=== PATIENT | female | born 1985 | race Caucasian/White ===

== ENCOUNTER → 2017-02-12 | Outpatient (CLI) | payer BC ==
[2014-01-25 19:30] VITALS: BP 134/95
[~2017-02-12] MED LIST: HYDR12.53 PO; LEXAPRO10 MG PO; LISI10TA2 PO; METO-269 PO
--- NOTE | 2017-02-12 15:40 | RAD ---
EXAM: Right breast ultrasound. HISTORY: Palpable increasing right breast mass. COMPARISON: None. FINDINGS: Sonographic evaluation of the right breast was performed at the 9:30 site of concern, 8 cm from the nipple. Comparison is made with the prior study of 02/06/2016. There is a hypoechoic solid oval mass at the site of concern, measuring 2.4 x 1.1 x 2.1 cm. There are thin internal septa and internal vascularity. This has increased in size since the prior study when it measured 1.5 x 0.6 x 1.5 cm. IMPRESSION: 1. BI-RADS Category 4: Suspicious abnormality-biopsy is suggested. 2. Given instability, biopsy of the right breast mass at the 9:30 position is recommended to confirm benignity, unless surgical resection is not already planned based on clinical assessment.
== END | disposition home or self-care (01) ==
LOC: KCIC US 15:09
PROVIDERS: ATTEND Nurse Practitioner Family
DX: N63.10 Unspecified lump in the right breast, unspecified quadrant (principal)
CPT/HCPCS: 76641

== ENCOUNTER → 2018-02-18 | Outpatient (CLI) | payer BC ==
[2014-01-25 19:30] VITALS: BP 134/95
--- NOTE | 2018-02-19 13:49 | KCIC ---
PA and lateral chest x-ray without comparison for cough for one week, history of bronchitis. FINDINGS: The lungs are clear. The cardiomediastinum is grossly unremarkable. No soft tissue or osseous anomalies are seen. IMPRESSION: 1. No acute cardiopulmonary abnormality. Electronically signed by: Ventura Calhoun MD (02/19/2018 1:46 PM) [id number]
== END | disposition home or self-care (01) ==
LOC: KCIC 15:12
PROVIDERS: ATTEND Nurse Practitioner Family
DX: R05 Cough (principal)
CPT/HCPCS: 71046

== ENCOUNTER → 2020-03-12 | Outpatient (CLI) | payer OTHER, BC ==
[2014-01-25 19:30] VITALS: BP 134/95
[~2020-03-12] MED LIST changes: -HYDR12.53 PO; +HYDR12.575 PO
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
== END ==
LOC: KCIC 15:34
PROVIDERS: ATTEND Nurse Practitioner Family
DX: M54.6 Pain in thoracic spine (principal)
CPT/HCPCS: 72072

== ENCOUNTER → 2020-03-20 | Outpatient (CLI) | payer OTHER, BC ==
[2014-01-25 19:30] VITALS: BP 134/95
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
== END ==
LOC: KCIC MRI 08:39
PROVIDERS: ATTEND Nurse Practitioner Family
DX: M54.6 Pain in thoracic spine (principal)
CPT/HCPCS: 72146

== ENCOUNTER → 2020-05-03 | Outpatient (CLI) | payer OTHER, BC ==
[2014-01-25 19:30] VITALS: BP 134/95
[~2020-05-03] MED LIST changes: +ACET-1871 PO; +ASCO100T4 PO; +CHOL500050 PO; +IBUP-1007 PO; +MECO10005 PO; +MELA10TA PO; +MULT-245 PO
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
== END | disposition home or self-care (01) ==
LOC: PNCL 09:05
PROVIDERS: ATTEND Anesthesiology
DX: M54.5 Low back pain (principal); M79.605 Pain in left leg; I10 Essential (primary) hypertension; M19.90 Unspecified osteoarthritis, unspecified site; K21.9 Gastro-esophageal reflux disease without esophagitis; F32.9 Major depressive disorder, single episode, unspecified; F17.210 Nicotine dependence, cigarettes, uncomplicated; Z79.899 Other long term (current) drug therapy; Z98.51 Tubal ligation status; Z98.890 Other specified postprocedural states; Z82.49 Family history of ischemic heart disease and other diseases of the circulatory system
CPT/HCPCS: 99214; G0463

== ENCOUNTER → 2020-05-16 | Outpatient (CLI) | payer OTHER, BC ==
[2014-01-25 19:30] VITALS: BP 134/95
--- NOTE | 2020-05-16 16:25 | KCIC ---
MR LUMBAR SPINE WO -[id number] Date: 05/16/2020 2:25 PM Indication: LUMBAR RADICULOPATHY. Back pain into tailbone and down left leg. Sx in recent months. Comparison: None. Technique: Multi-planar multi-weighted magnetic resonance imaging of the lumbar spine was performed w ithout intravenous contrast using the standard lumbar spine protocol. FINDINGS: The lumbar spine is normally aligned. No acute fracture. Degenerative disc desiccation and disc heigh t loss at L5-S1. Bone marrow signal intensity is normal. The conus terminates at a normal level. No abnormal signal is seen within the visualized distal spina l cord. No clumping of intrathecal nerve roots. Sacral Tarlov cysts. No soft tissue abnormality in the visualized abdomen or pelvis. T12-L1: No disc bulge. No facet arthropathy. No significant spinal stenosis or neural foraminal narro wing. L1-L2: No disc bulge. No facet arthropathy. No significant spinal stenosis or neural foraminal narrow ing. L2-L3: No disc bulge. No facet arthropathy. No significant spinal stenosis or neural foraminal narrow ing. L3-L4: No disc bulge. No facet arthropathy. No significant spinal stenosis or neural foraminal narrow ing. L4-L5: No disc bulge. No facet arthropathy. No significant spinal stenosis or neural foraminal narrow ing. L5-S1: Disc bulge with annular tear which mildly narrows both lateral recesses and abuts the descendi ng S1 nerve roots. No spinal canal stenosis. Mild left neural foraminal narrowing. IMPRESSION: Focal degenerative changes at L5-S1 as above. Electronically signed by: Vince Myers MD (05/16/2020 4:23 PM) [id number]
== END | disposition home or self-care (01) ==
LOC: KCIC MRI 14:19
PROVIDERS: ATTEND Anesthesiology
DX: M51.16 Intervertebral disc disorders with radiculopathy, lumbar region (principal); M48.07 Spinal stenosis, lumbosacral region
CPT/HCPCS: 72148

== ENCOUNTER → 2020-05-23 | Outpatient (CLI) | payer OTHER, BC ==
[2014-01-25 19:30] VITALS: BP 134/95
[~2020-05-23] MED LIST changes: +VALA10005 PO; +methylPREDNISolone ACETATE 40 MG/ML VIAL. ONE; +methylPREDNISolone ACETATE 80 MG/ML VIAL. ONE
--- NOTE | 2020-05-23 12:19 | PDOC ---
Progress Note - Pain Clinic Date of Service: DOS: DATE: 05/23/20 TIME: 12:16 Diagnosis: Dx: Lumbar radiculopathy with lumbar degenerative disc disease History or Present Illness: HPI: 34-year-old female returns for follow-up status post initial evaluation and preauthorization as well as MRI scan lumbar spine. Patient had MRI scan showing disc bulges with annular tear at L5-S1 which mildly narrows both lateral recesses and abuts the descending S1 nerve roots. Patient has obtained preauthorization for lumbar epidural steroid injection, and would like to proceed. Patient reports that she has significant pain low back left lower extremity posterior gluteus posterior thigh posterior calf to the ankle and foot on the left side patient reports is a 6 on scale 10 is worse over the past week 6 on average for its least and is a 6 today patient ports aching tight shooting burning tingling and stabbing radiating left leg patient reports no new motor or sensory deficits still better with sitting or laying down does not generally wake from sleep at night. Patient reports no new motor or sensory deficits no bowel or bladder incontinence. Physical Exam: VS: Blood pressure is 134/89 pulse 76 respirations 18 temperature 98.6 F height is 5 feet 1 inches weight is 126 pounds PE: PHYSICAL EXAMINATION: GENERAL: The patient is awake, alert, oriented, appropriate, very pleasant demeanor HEENT: Shows normocephalic, atraumatic. Extraocular movements are intact and symmetrical. NECK: Shows anterior throat supple without palpable lymphadenopathy noted. Swallow reflex symmetrical. CHEST: Shows normal on inspection. Breath sounds are clear bilaterally. HEART: Shows S1, S2 clear. No murmurs auscultated. ABDOMEN: Soft, nontender, nondistended. No palpable organomegaly is noted. BACK: Shows spine grossly in the midline. Normal-appearing cervical lordotic curvature. There is slightly increased thoracic kyphosis, some minor flattening of the lumbar lordotic curvature. Lumbar paraspinous muscles show symmetrical on inspection, on palpation shows some moderate tenderness diffusely throughout the upper, middle and lower distribution of the paraspinous muscles without specific trigger points, without radiation of pain. The patient has good rotational motion of the lumbar spine, both laterally as well as extension and flexion without significant difficulty. EXTREMITIES: Lower extremities show deep tendon reflexes 2+ in the patellar and tendo calcaneus tendons. Motor exam is 5 on a scale of 5 with right dorsiflexion, extension, quadriceps and hamstring flexion and 4/5 on the left. Peripheral pulses are 1+ posterior tibial. No peripheral edema is noted bilaterally. Lower extremities are warm and dry to touch, equal in color and appearance. SKIN: Shows warm and dry, good turgor. No edema. No sores, rashes or bruising throughout. Procedure: Procedure: Options were discussed with the patient. Patient will chart reviews her current medication regimen updated current review of systems updated today as well. We will proceed with a lumbar epidural steroid injection today with fluoroscopic guidance. Risks were discussed including but not limited to: Bleeding, infection, possibility of epidural hematoma and subsequent neurological compromise, dural puncture, headaches, spinal cord and/or nerve damage, side effects of steroid medication, and poor results regarding pain control. Patient understands and wished to proceed. Patient will return to clinic in approximate 2 weeks for follow-up, was counseled as to return appointment activity level and side effects to be aware of. Medication Injected: Med Injected: Procedure is lumbar epidural steroid injection under local anesthetic using sterile prep and drape at the L5-S1 level using C-arm fluoroscopic guidance in both AP and lateral views medications injected is 120 mg Depo-Medrol + 10 mL preservative-free normal saline and 2 mL contrast- condition at discharge is stable patient tolerated procedure well had no complications. Condition at Discharge: Condition at Discharge: Condition at discharge stable, patient tolerated procedure well and had no complications. CHIQUITA BUTLER MD May 23, 2020 12:19
--- NOTE | 2020-05-23 12:20 | PDOC4 ---
PROCEDURE Procedure Patient was consented for lumbar epidural steroid injection. Risks were dis cussed including but not limited to: Bleeding, infection, possibility of epidural hematoma and subsequent neurological compromise, dural puncture, headaches, spinal cord and/or nerve damage, side effects of steroid medication, and poor results regarding pain control. Patient understands and wished to proceed. Procedure is lumbar epidural steroid injection under local anesthetic using sterile prep and drape at the L5-S1 level using C-arm fluoroscopic guidance in both AP and lateral views medications injected is 120 mg Depo-Medrol + 10 mL preservative-free normal saline and 2 mL contrast- condition at discharge is stable patient tolerated procedure well had no complications. CHIQUITA BUTLER MD May 23, 2020 12:20
== END | disposition home or self-care (01) ==
LOC: PNCL 11:02
PROVIDERS: ATTEND Anesthesiology
DX: M51.16 Intervertebral disc disorders with radiculopathy, lumbar region (principal); F17.210 Nicotine dependence, cigarettes, uncomplicated; Z79.899 Other long term (current) drug therapy
CPT/HCPCS: 62323; J1030; J1040

== ENCOUNTER → 2020-06-06 | Outpatient (CLI) | payer OTHER, BC ==
[2014-01-25 19:30] VITALS: BP 134/95
[~2020-06-06] MED LIST changes: +IOHEXOL 180 MG/ML 10 ML VIAL. ONE; +LISI10TA16 PO; -LISI10TA2 PO
--- NOTE | 2020-06-06 14:22 | PDOC4 ---
PROCEDURE Procedure Patient was consented for lumbar epidural steroid injection. Risks were dis cussed including but not limited to: Bleeding, infection, possibility of epidural hematoma and subsequent neurological compromise, dural puncture, headaches, spinal cord and/or nerve damage, side effects of steroid medication, and poor results regarding pain control. Patient understands and wished to proceed. Procedure is lumbar epidural steroid injection under local anesthetic using sterile prep and drape at the L5-S1 level using C-arm fluoroscopic guidance in both AP and lateral views medications injected is 120 mg Depo-Medrol + 10 mL preservative-free normal saline and 2 mL contrast- condition at discharge is stable patient tolerated procedure well had no complications. CHIQUITA BUTLER MD Jun 06, 2020 14:22
--- NOTE | 2020-06-06 14:22 | PDOC ---
Progress Note - Pain Clinic Date of Service: DOS: DATE: 06/06/20 TIME: 14:18 Diagnosis: Dx: Lumbar radiculopathy with lumbar degenerative disc disease History or Present Illness: HPI: 34-year-old female returns for follow-up status post lumbar epidural steroid action x1. Patient reports about 60% improvement in low back and left lower extremity pain. Patient reports it took a few days for the pain to subside after the injection but then it was quite a bit better. Patient reports still pain in the low back and left lower extremity posterior gluteus posterior thigh to the knee and on the lateral thigh as well only on the left side. Patient reports that initially she was doing much better with walking standing doing household activities travel with greater ease and comfort as well. Patient rates her pain is 8 on scale 10 is worse over the past week 7 on average 7 its least is a 7 today. Patient scribes pain is tight shooting across the back burning and stabbing with radiating pain in the left lower extremity as described can be severe with extended walking or standing, better with sitting or laying down generally is not awaken her from sleep at night but can every 5-6 hours over the past few days as the pain is been returning. Patient reports no new motor or sensory deficits no new bowel or bladder incontinence or other complaints. Physical Exam: VS: Blood pressure is 123/88 pulse 78 respirations 18 temperature is 98.1 F weight is 129 pounds PE: PHYSICAL EXAMINATION: GENERAL: The patient is awake, alert, oriented, appropriate, very pleasant demeanor HEENT: Shows normocephalic, atraumatic. Extraocular movements are intact and symmetrical. Oral cavity: Mucous membranes moist and pink. NECK: Shows anterior throat supple without palpable lymphadenopathy noted. Swallow reflex symmetrical. CHEST: Shows normal on inspection. Breath sounds are clear bilaterally. HEART: Shows S1, S2 clear. No murmurs auscultated. ABDOMEN: Soft, nontender, nondistended. No palpable organomegaly is noted. BACK: Shows spine grossly in the midline. Normal-appearing cervical lordotic curvature. There is slightly increased thoracic kyphosis, some flattening of the lumbar lordotic curvature. Lumbar paraspinous muscles show symmetrical on i nspection, on palpation shows some moderate tenderness diffusely throughout the upper, middle and lower distribution of the paraspinous muscles without specific trigger points, without radiation of pain. The patient has good rotational motion of the lumbar spine, both laterally as well as extension and flexion without significant difficulty. EXTREMITIES: Lower extremities show deep tendon reflexes 2+ in the patellar and tendo calcaneus tendons. Motor exam is 5 on a scale of 5 with right dorsiflexion, extension, quadriceps and hamstring flexion and 4/5 on the left. Peripheral pulses are 1+ posterior tibial. No peripheral edema is noted bilaterally. Lower extremities are warm and dry to touch, equal in color and appearance. SKIN: Shows warm and dry, good turgor. No edema. No sores, rashes or bruising throughout. Procedure: Procedure: Options were discussed with the patient. Patient will chart reviews her current medication regimen updated current review of systems updated today as well. We will proceed with a second in a series lumbar epidural steroid traction today with fluoroscopic guidance. Risks were discussed including but not limited to: Bleeding, infection, possibility of epidural hematoma and subsequent neurol ogical compromise, dural puncture, headaches, spinal cord and/or nerve damage, side effects of steroid medication, and poor results regarding pain control. Patient understands and wished to proceed. Patient will return to clinic in approximate 2 weeks for follow-up, was counseled as return appointment activity level and side effects to be aware of. Medication Injected: Med Injected: Procedure is lumbar epidural steroid injection under local anesthetic using sterile prep and drape at the L5-S1 level using C-arm fluoroscopic guidance in both AP and lateral views medications injected is 120 mg Depo-Medrol + 10 mL preservative-free normal saline and 2 mL contrast- condition at discharge is stable patient tolerated procedure well had no complications. Condition at Discharge: Condition at Discharge: Condition at discharge stable, patient tolerated the procedure well and had no complications. CHIQUITA BUTLER MD Jun 06, 2020 14:22
== END | disposition home or self-care (01) ==
LOC: PNCL 13:28
PROVIDERS: ATTEND Anesthesiology
DX: M51.16 Intervertebral disc disorders with radiculopathy, lumbar region (principal); Z98.890 Other specified postprocedural states
CPT/HCPCS: 62323; J1030; J1040; Q9965

== ENCOUNTER → 2021-02-07 | Outpatient (CLI) | payer BC ==
[2014-01-25 19:30] VITALS: BP 134/95
[~2021-02-07] MED LIST changes: -IOHEXOL 180 MG/ML 10 ML VIAL. ONE; -methylPREDNISolone ACETATE 40 MG/ML VIAL. ONE; -methylPREDNISolone ACETATE 80 MG/ML VIAL. ONE
--- NOTE | 2021-02-07 15:14 | KCIC ---
Bilateral diagnostic digital mammograms with 3-D tomosynthesis: Reason for examination: Right breast lump laterally with pain and bilateral nipple discharge for 2 mo nths. Comparison is made to previous study dated 02/06/2016. Bilateral mammograms in CC and oblique projections were obtained with 2-D imaging and 3-D tomosynthes is imaging on a Siemens Inspiration unit and reviewed on the workstation. Interpretation was made wit h the benefit of CAD. The skin and nipples show no abnormalities. No abnormal axillary lymph nodes are seen. The breast par enchyma is extremely dense. (Breast density: Category D.) There appears to be a small nodule left javon ast at approximately the 3:30 B position. There are no other dominant masses, suspicious calcificatio ns or architectural distortion. Impression: Dense breast parenchyma with possible small nodule at the 3:30 B position of the left breast. Ultraso und to follow. Your patient's mammogram demonstrates that she has dense breast tissue (breast density category C or D), which could hide abnormalities, and if she has other risk factors for breast cancer that have bee n identified, she might benefit from supplemental screening tests that may be suggested by you as her ordering physician. Dense breast tissue, in and of itself, is a relatively common condition. Therefo re, this information is not provided to cause undue concern, but rather to raise your awareness and t o promote discussion with your patient regarding the presence of other risk factors, in addition to d ense breast tissue. Your patient's mammography results will be sent to her. BI-RAD Category 0: Incomplete. Needs additional imaging evaluation. Bilateral breast ultrasound: Bilateral whole breast ultrasound including evaluation of all 4 quadrants and the retroareolar and ax illary regions of both breasts was performed. In the right breast, there are multiple small hypoechoic nodules throughout the breast which are all subcentimeter in size and have appearances consistent with complicated cysts, fibrocystic lesions and fibroadenoma. No grossly suspicious nodules are seen. No abnormal appearing lymph nodes are seen in the right axilla. In the left breast, there are small hypoechoic circumscribed nodules present throughout the breast wh ich are subcentimeter in size consistent with complicated cysts and fibrocystic lesions. No abnormal appearing lymph nodes are seen in the axilla. IMPRESSION: Benign appearing cystic, fibrocystic and fibroadenomatous type nodules which are subcentimeter in siz e. No suspicious lesions are seen. Recommend 6 month follow-up with breast ultrasound. BI-RADS Category 3: Probably Benign. "Our facility is accredited by the [employer] Mammography Program." This patient's information has been entered into a reminder system for the patient to be notified wit h the results of her examination and a target date for the next mammogram. Electronically signed by: Soila Ingram MD (02/07/2021 3:12 PM) [id number]
== END ==
LOC: KCIC MAMMO 07:54
PROVIDERS: ATTEND Nurse Practitioner Family
DX: R92.2 Inconclusive mammogram (principal); N64.52 Nipple discharge
CPT/HCPCS: 76641; 77066; G0279; 77062

== ENCOUNTER → 2021-06-12 | Outpatient (CLI) | payer BC ==
[2014-01-25 19:30] VITALS: BP 134/95
--- NOTE | 2021-06-12 08:39 | RAD ---
EXAM: Bilateral breast sonogram. HISTORY: 35-year-old female presents for follow-up evaluation of findings within both breasts demonst rated on a sonogram performed 02/07/2021. The patient is 2 months early for the recommended 6 month f ollow-up interval. TECHNIQUE: Sonographic imaging of the both breasts including all 4 quadrants and the retroareolar reg ions was performed. COMPARISON: 02/07/2021 and 02/12/2017 and 02/06/2016. FINDINGS: Sonographic imaging of the right breast demonstrates multiple small benign simple and compl icated cysts and fibrocystic lesions. For reference purposes, the largest lesions include a 4 mm cyst with suspected internal debris at the 12:00 position 3 cm from the nipple, a 7 mm complicated cyst o r cluster of cysts at the 1:00 position 2 cm from the nipple, a 6 mm cyst with adjacent 5 mm fibroade noma or fibrocystic lesion at the 3:00 retroareolar location, a 7 mm suspected fibrocystic lesion at the 6:00 position 3 cm for the nipple, a 7 mm suspected cluster of cysts at the 6:00 position 3 cm fr om the nipple. A 6 mm oval circumscribed hypoechoic lesion likely due to a fibroadenoma at the 8:00 p osition 2 cm from the nipple, a 7 mm cyst at the 11:00 position 3 cm from the nipple, and a 12 mm cys t at the 10:00 position 6 cm from the nipple. There is also a hypoechoic lesion with taller than wide morphology on radial images measuring 4 mm at the 9:00 position 6 cm from the nipple, the appearance of which favors a complicated cyst or benign fibrocystic lesion. This demonstrates no internal blood flow or posterior shadowing to suggest a solid lesion component. There is no suspicious axillary lym ph node. Sonographic imaging of the left breast demonstrates multiple benign simple and complicated cysts and fibrocystic lesions. For reference purposes, the largest lesions include a 6 mm cyst at the 3:00 posi tion 6 cm from the nipple, focal fibrocystic change at the 3:00 position 6 cm from the nipple, an 8 m m cyst at the 6:00 retroareolar location, a 5 mm cyst with internal debris at the 9:00 retroareolar l ocation, a 5 mm cyst with internal debris at the 10:00 position 4 cm from the nipple. There is no vibha picious axillary lymph node. IMPRESSION: 1. Multiple benign-appearing cystic, fibrocystic and possibly fibroadenomatoid lesions within both br easts, described in detail above. The majority of the lesions are unchanged. There are a few lesions which are slightly increased or decreased in size compared to the prior exam. The multiplicity and so nographic appearance favors benignity. 2. BI-RADS Category 3: Probably benign finding(s). Repeat short-term follow up with a bilateral breas t sonogram in 8 months is recommended to confirm longer-term stability and correspond with the previo usly established mammography interval. Electronically signed by: Noelle Castro MD (06/12/2021 8:37 AM) [id number]
--- NOTE | 2021-06-12 08:42 | RAD ---
EXAM: Pelvic sonogram. HISTORY: Pain. TECHNIQUE: Transabdominal and transvaginal sonographic imaging of the pelvis was performed. COMPARISON: 05/04/2013. FINDINGS: The uterus measures 8.6 x 5.9 x 4.4 cm. The endometrial stripe measures 7.7 mm. The ovaries are normal in size and demonstrate normal blood flow. There is a 1.8 cm complicated cyst within the right ovary, possibly involuting or hemorrhagic in etiology. There is a similar-appearing 1.5 cm comp licated cyst within the left ovary which may be involuting or hemorrhagic. There are nabothian cysts within the cervix. There is no pelvic free fluid. IMPRESSION: 1. 1.8 cm right and 1.5 cm left ovarian complicated cysts, possibly involuting or hemorrhagic in etio logy. 2. Small nabothian cysts within the cervix. Electronically signed by: Noelle Casrto MD (06/12/2021 8:39 AM) [id number]
== END ==
LOC: US 06:47
PROVIDERS: ATTEND Nurse Practitioner Family
DX: N83.202 Unspecified ovarian cyst, left side (principal); N88.8 Other specified noninflammatory disorders of cervix uteri; N64.4 Mastodynia
CPT/HCPCS: 76830; 76856; 76641-50

== ENCOUNTER → 2021-08-23 | Outpatient (CLI) | payer BC ==
[2014-01-25 19:30] VITALS: BP 134/95
[2021-08-23 13:22] LABS: BACTERIA,URINE FEW /HPF (0-FEW); RBC,URINE OCC /HPF (0-2); WBC,URINE OCC /HPF (0-4)
[2021-08-23 13:37] LABS: BASO % 0 % (0-3); EOS # 0.1 x10^3/uL (0.0-0.7); EOS % 1 % (0-3); HEMOGLOBIN 15.4 g/dL (12.0-15.5); LYMPH # 2.8 x10^3/uL (1.0-4.8); LYMPH % 33 % (24-48); MEAN CORPUSCULAR HEMOGLOBIN 32 pg (25-35); MEAN CORPUSCULAR HGB CONC 34 g/dL (31-37); MEAN CORPUSCULAR VOLUME 94 fL (79-100); MONO # 0.5 x10^3/uL (0.0-1.1); MONO % 6 % (0-9); NEUT # 5.1 x10^3/uL (1.8-7.7); NEUT % 59 % (31-73); PLATELET COUNT 294 x10^3/uL (140-400); RED BLOOD COUNT 4.77 x10^6/uL (3.50-5.40); RED CELL DISTRIBUTION WIDTH 12.1 % (11.5-14.5); WHITE BLOOD COUNT 8.5 x10^3/uL (4.0-11.0)
--- NOTE | 2021-08-23 13:58 | EKG ---
[facility] [address] [place] [address] Test Date: 2021-08-23 Test Time: 13:24:29 Pat Name: JULES TOUSSAINT Department: Room: Gender: F Wireless Communications Engineer: : 1985 Requested By: DEDE ARAUZ Order Number: [id number] Reading MD: Louis Ta Measurements Intervals Cameron Rate: 67 P: 73 DC: 166 QRS: 48 QRSD: 68 T: 49 QT: 380 QTc: 404 Interpretive Statements SINUS RHYTHM NO SPECIFIC ECG ABNORMALITY Electronically Signed On 08-23-2021 17:54:44 CDT by Louis Ta
[2021-08-23 14:10] LABS: ALBUMIN 3.9 g/dL (3.4-5.0); ALBUMIN/GLOBULIN RATIO 1.1 (1.0-1.7); CREATININE 0.9 mg/dL (0.6-1.0); GFR 70.5; POTASSIUM 4.6 mmol/L (3.5-5.1); TOTAL BILIRUBIN 0.2 mg/dL (0.2-1.0); TOTAL PROTEIN 7.4 g/dL (6.4-8.2)
--- NOTE | 2021-08-23 14:19 | RAD ---
Exam Date: 08/23/2021 1:56 PM XR CHEST 2V Indication: Reason: PRE-OP HYSTERECTOMY ON 08/28. Instructions: / History: . Comparison: February 18, 2018 FINDINGS/ IMPRESSION: The cardiac silhouette and pulmonary vasculature are within normal limits. There is no focal consolidation, pleural effusion or pneumothorax. The visualized osseous structures are intact. Electronically signed by: Nicolas Forman MD (08/23/2021 2:16 PM) [id number]
== END ==
LOC: SURGPAT 12:10
PROVIDERS: ATTEND Obstetrics & Gynecology
DX: Z01.818 Encounter for other preprocedural examination (principal); I10 Essential (primary) hypertension; Z20.822 Contact with and (suspected) exposure to COVID-19
CPT/HCPCS: 36415; 71046; 80053; 81001; 85025; 93005; U0003

== ENCOUNTER 2021-08-28 06:10 | Observation (INO) | payer BC ==
[~2021-08-28] VITALS: Ht 154.9 cm; Wt 52.6 kg
[2021-08-28] VITALS (11 sets, daily range): BP systolic 91–108; BP diastolic 46–80
[~2021-08-28 06:10] MED LIST changes: +HYDROmorphone 2 MG/ML INJ. IVP PRN; +IV RINGERS,LACTATED 1000ML 1,000 ML IV SCH; +MORPHINE SULFATE 2 MG/ML INJ. IVP PRN; +PROCHLORPERAZINE 10 MG/2 ML VIAL. IVP PRN; +fentaNYL PF VIAL 100 MCG/2 ML VIAL IVP PRN
[2021-08-28] MEDS ORDERED: PROPOFOL 10 MG/ML (20ML) VIAL. IV ONE (06:24)
[2021-08-28] MEDS ORDERED: LIDOCAINE 2% PF 5 ML VIAL. ONE ×2 (06:24→08:04)
[2021-08-28] MEDS ORDERED: DEXAMETHASONE SOD PHOS 4 MG/ML VIAL ONE (06:24)
[2021-08-28] MEDS ORDERED: ONDANSETRON PF 4 MG/2 ML VIAL. ONE (06:24)
[2021-08-28] MEDS ORDERED: ROCURONIUM 50 MG/5 ML VIAL. ONE (06:26)
[2021-08-28] MEDS ORDERED: ceFAZolin 2GM PREMIX 2 GM/50 ML BAG IV ONE (07:00)
[2021-08-28] MEDS ORDERED: fentaNYL PF VIAL 100 MCG/2 ML VIAL ONE ×2 (07:06→10:07)
[2021-08-28] MEDS ORDERED: KETOROLAC 30 MG/ML VIAL. ONE (07:07)
[2021-08-28] MEDS ORDERED: BUPIVACAINE-EPI 0.25%-1:200000 MPF 30 ML VIAL. ONE (07:12)
[2021-08-28] MEDS ORDERED: INDIGOTINDISULFONATE SODIUM 40 MG/5 ML AMPUL. ONE (07:12)
[2021-08-28] MEDS ORDERED: ESTROGENS, CONJ VAGINAL CREAM 30GM TUBE. ONE (07:12)
[2021-08-28] MEDS ORDERED: MIDAZOLAM HCL/PF 2 MG/2 ML VIAL. ONE (07:21)
[2021-08-28] MEDS ORDERED: HYDROmorphone 2 MG/ML INJ. ONE (07:56)
[2021-08-28] MEDS ORDERED: diphenhydrAMINE 50 MG/ML VIAL ONE (08:04)
[2021-08-28] MEDS ORDERED: DEXMEDETOMIDINE 200 MCG/2 ML VIAL. ONE (08:07)
[2021-08-28] MEDS ORDERED: BUPIVACAINE-EPI 0.25%-1:200000 MPF 30 ML VIAL. INJ ONE (08:10)
[2021-08-28] MEDS ORDERED: GLYCOPYRROLATE 1 MG/5 ML VIAL. ONE (08:33)
[2021-08-28] MEDS ORDERED: NEOSTIGMINE METHYLSULFATE 5 MG/5 ML SYRINGE. ONE (08:33)
--- NOTE | 2021-08-28 09:20 | PDOC4 ---
BRIEF OPERATIVE NOTE Date: August 28, 2021 Pre-Op Diagnosis pelvic pain, menorhagia, dysmenorrhea Post-Op Diagnosis same plus endometriosis Procedure Performed LAVH/BSO Surgeon Dr. Schwartz Steamer Gum Candy ANTWAN Navarrete Anesthesiologist Dr. Haynes Anesthesia Type: General Blood Loss 10cc IV Fluid 1200cc Urine Output 100cc clear via little Specimens Obtained cervix/uterus/bilateral tubes and ovaries Findings small RV uterus, evidence of prior tubal, mild bowel adhesions in mid/upper abd (yan right sided), grossly normal RUQ liver area, left ovary with cyst, endometriosis in post cul de sac and right side wall near right IP ligament Complications none Operative Note [id number] DEDE SCHWARTZ MD August 28, 2021 09:20
[2021-08-28] MEDS ORDERED: CALCIUM CARBONATE 500 MG TAB.CHEW PO PRN (09:30)
[2021-08-28] MEDS ORDERED: ZOLPIDEM 5 MG TABLET. PO PRN (09:30)
[2021-08-28] MEDS ORDERED: ONDANSETRON PF 4 MG/2 ML VIAL. IV PRN (09:30)
[2021-08-28] MEDS ORDERED: 0.9 % SODIUM CHLORIDE 10 ML DISP.SYRIN. IV PRN (09:30)
[2021-08-28] MEDS ORDERED: diphenhydrAMINE HCL 25 MG CAPSULE PO PRN (09:30)
[2021-08-28] MEDS ORDERED: MORPHINE SULFATE 2 MG/ML INJ. IV PRN (09:30)
[2021-08-28] MEDS ORDERED: diphenhydrAMINE 50 MG/ML VIAL IV PRN (09:30)
[2021-08-28] MEDS ORDERED: MAGNESIUM HYDROXIDE 2,400 MG/30 ML ORAL.SUSP. PO PRN (09:30)
[2021-08-28] MEDS ORDERED: LACTULOSE 20 GM/30 ML SOLUTION. PO PRN (09:30)
[2021-08-28] MEDS ORDERED: HYDROcodone/APAP 5/325MG 1 TAB TABLET PO PRN (09:30)
[2021-08-28] MEDS ORDERED: NALOXONE 0.4 MG/ML VIAL. IV PRN (09:30)
[2021-08-28] MEDS ORDERED: oxyCODONE/APAP 5/325 1 TAB TABLET PO PRN (09:30)
[2021-08-28] MEDS ORDERED: SIMETHICONE 80 MG TAB.CHEW PO PRN (09:30)
[2021-08-28] MEDS ORDERED: MAG HYDROX/ALUMINUM HYD/SIMETH 30 ML ORAL.SUSP PO PRN (09:30)
[2021-08-28] MEDS ORDERED: KETOROLAC 15 MG/ML VIAL. ONE (10:13)
[2021-08-28] MEDS ORDERED: KETOROLAC 15 MG/ML VIAL. IVP ONE (10:15)
[2021-08-28] MEDS ORDERED: NICOTINE 14MG PATCH. TD SCH (11:45)
--- NOTE | 2021-08-28 15:13 | OP ---
DATE OF SURGERY: 08/28/2021 PREOPERATIVE DIAGNOSES: Pelvic pain, menorrhagia, dysmenorrhea. POSTOPERATIVE DIAGNOSES: Pelvic pain, menorrhagia, dysmenorrhea, endometriosis discovered by laparoscopy. PROCEDURES: Laparoscopic-assisted vaginal hysterectomy, bilateral salpingo-oophorectomy. SURGEON: Isabella Schwartz MD CAKE PUNCHER: ANTWAN Bucio ANESTHESIOLOGIST: Macarena Haynes MD ANESTHESIA: General. BLOOD LOSS: 10 mL URINE OUTPUT: 100 mL clear via Juarez catheter. FLUIDS: 1200 mL of crystalloid. SPECIMENS: Cervix, uterus, bilateral tubes and ovaries. FINDINGS: A small retroverted uterus. Evidence of prior tubal ligation, small cyst on the left ovary; endometriosis seen in the posterior cul-de-sac, right side, near the right infundibulopelvic ligament and the right round ligament; grossly normal right upper quadrant liver area; grossly normal bowel except she had some mild bowel adhesions of the colon to the left side and the small bowel and near the appendix to the right side. COMPLICATIONS: None. DESCRIPTION OF PROCEDURE: This patient was taken to the operating room where general anesthesia was placed. The patient was placed in dorsal lithotomy position in [facility]. The patient's abdomen and vagina were both prepped and draped in the normal sterile fashion and a Juarez catheter had been inserted under sterile technique. Upon my arrival, a timeout was performed. Once everyone agreed on the patient, the site, the procedure, the antibiotics, the procedure was initiated. A bivalve speculum was placed in the patient's vagina. A single-tooth tenaculum was used to grasp the anterior lip of the cervix. 10 mL of 0.25% Marcaine with epinephrine was used to circumferentially inject around the cervix for both hemodissection and hemostatic purposes later. The Valtchev uterine manipulator was placed through the endocervical os, locked on the single tooth tenaculum and the bivalve speculum was then removed. Top gloves were discarded and changed. Attention was then turned to the abdomen. She was injected with 2-3 mL of 0.25% Marcaine width. A small incision was made, curved Judy was used to dissect through the subcuticular layer to the fascia. The 5 mm Visiport was used to directly enter the abdominal cavity. Opening patient pressure was 2-3 mmHg. Carbon dioxide gas was used to appropriately insufflate the abdominal cavity to maintain a pressure of 15 mmHg. Overhead lights were dimmed. The patient was placed in Trendelenburg position. At this point, right and left lower quadrant ports were placed under direct visualization. There were no adhesions on the anterior abdominal wall, so transilluminating the abdominal wall, finding an area clear of any vasculature, making small incisions and placing in under direct visualization. The 4-5 mL of air was placed in the trocar cuffs of these. The camera was then moved laterally to look at the umbilical port and when it was found to be in and clear, it was also insufflated with the 4-5 mL of air in the trocar cuff. At this point, inspection was done with the above findings. As per patient's request with the endometriosis, she did desire both ovaries out, should we were and we suspected endo, but we were not positively sure yet, so her desire was if there was nothing in there to at least leave a normal ovary, but with anything in there, she wants everything out to hopefully decrease the risk of future surgeries and future pain. So as per patient's request, we elevated the left tube and ovary, which the left tube had a cyst on it. We could see the ureter coursing low, staying high on the infundibulopelvic ligament, crossing that cauterizing and cutting with the LigaSure, taking the left tube and ovary, crossing the left round ligament, cauterizing and cutting it with the LigaSure. This was done exactly the same on the right side, first elevating the right tube and ovary and near the right IP and the right round, there was endometriosis. In the posterior cul-de-sac, there was also an endometriosis, that is why we decided to take it. There was some mild bowel adhesions of the small bowel near the appendix, but this was well above the IP ligament. This was left alone just an incidental finding. Finding the ureter coursing low and peristalsing in on the pelvic sidewall, staying high on the IP ligament well above this and out of the way. The LigaSure was used to cauterizing and cut this and removed the right tube and ovary as well. The right round ligament was crossed, cauterized and cut as well. The bladder flap was created sharply pushing the uterus cephalad, opening it up on that side starting that bladder flap and then using the monopolar hook to cut across and peel off that bladder. Once the bladder was off, crossing contralaterally, staying right on the uterus getting the uterine vessels and then staying inside this and going down through the cardinal and broad ligaments with 2 or 3 bites, cauterizing and cutting with the LigaSure down to the level of the infundibulopelvic ligament on the left. Then on the right side, crossing the uterine vessels, staying inside this going posteriorly through the cardinal and broad with 2 or 3 bites, hugging the posterior cervix and taking it down and skeletonizing it on the right side as well. The cervix and uterus and tubes and ovaries were completely free and blanched. So at this point, all instruments were taken out and it was decided to go vaginally. Overhead lights were placed back on. The patient was taken out of the steep Trendelenburg and the Valtchev uterine manipulator was removed. A weighted speculum was placed in the patient's vagina and the single tooth tenaculum was removed. Thyroid Juancarlos clamps were placed on the anterior and posterior lips of the cervix respectively. A scalpel was used to make a circumferential incision in the cervix. An open Ray-Dilip 4 x 4 was used to gently push up the anterior bladder peritoneum and the anterior cul-de-sac was digitally and bluntly entered. The 4 x 4 was removed and the curved Evergreen was placed in the anterior cul-de-sac. Cervix was elevated and the posterior cul-de-sac was sharply entered with curved Rojas scissors. A #0 Vicryl stitch was used to secure the posterior peritoneum here to the vaginal cuff, it was tagged with a curved Judy clamp. The needle was cut and passed off. The short weighted vaginal speculum was removed and replaced with the long weighted Ava speculum in the posterior cul-de-sac. Curved Antonia clamps x 2 were placed on the patient's left uterosacral ligament where they were doubly clamped with curved Heaneys, cut with curved Rojas scissors and suture ligated x 2 with 0 Vicryl. Second one was taken through the vaginal cuff, securing uterosacral ligament to the vaginal cuff, tagged with a straight Judy clamp. Needle was cut and passed off. This was done exactly the same on the patient's right side, double clamping the uterosacrals with curved Heaneys, cutting with curved Rojas scissors, suture ligating x 2 with 0 Vicryl, taking the second one through the vaginal cuff, securing uterosacral ligament to the vaginal cuff, tagging it with a straight Judy clamp, cutting and passing the needle off. The entire right side was free at this point. The left side was attached by just a thin thread, I could get around, so the vaginal LigaSure was used to cauterize and cut this. The cervix, uterus, bilateral tubes and ovaries were delivered in total and passed off for permanent pathology. Sponge stick was used to examine the pedicles. Once they were assured to be dry and hemostatic, a long Allis was used to grasp the anterior bladder peritoneum and 2-0 Vicryl was taken through the anterior bladder peritoneum, left uterosacral ligament, posterior peritoneum and right uterosacral ligament, thus closing the peritoneum in a pursestring like fashion. The right and left uterosacral tags were clipped. A full length 2-0 Vicryl was used to close the cuff in an anterior to posterior running locked fashion and tied to that posterior cuff tag. A sponge stick was used to examine the vaginal cuff. When it was completely dry and assured to be great, everything was ended. All sponge, lap, and needle counts had been correct x 2 by OR personnel. Legs were placed back down. The overhead lights were dimmed. The patient was placed back in Trendelenburg. We now did a second look from above, reinsufflating with the carbon dioxide gas. Everything was hemostatic. Right and left pericolic gutters were clear. Copious irrigation revealed hemostasis. Tisseel was placed over the cuff with excellent results. The 4-5 mL of air was taken out of all three trocar cuffs, right and left lower quadrants were removed under direct visualization. These too were hemostatic. Gas was released from the umbilical one. The cuff remained dry through all of this and then once the gas was out, it was removed as well. All 3 port sites were closed with 4-0 nylon at the skin. The patient was awakened from anesthesia. The Juarez catheter was removed and she has been taken to recovery room in stable condition. TAMERA/ELIANA/JULEE DR: Meggan TID: [id number]
--- NOTE | 2021-08-30 18:18 | PATHOLOGY ---
[facility] Accession Number: [id number] . 01 Material submitted: . uterus - OVARIES, TUBES, AND UTERUS . 01 Clinical history: . ENDOMETRIOSIS, MENORRHAGIA, PELVIC PAIN . 02 Diagnosis: Uterus, total abdominal hysterectomy: - Squamous metaplasia of uterine cervix; negative for dysplasia and malignancy. - Nabothian cyst formation of cervix. - Proliferative pattern of endometrium; negative for hyperplasia, atypia, and malignancy. - Adenomyosis, widespread. . Fallopian tubes "bilateral", salpingectomy: - Status post tubal ligation. - Benign paratubal cyst. - Endosalpingiosis. - Benign fallopian tube tissue. . Ovaries "bilateral", oophorectomy: - Benign ovarian tissue, with several follicular cysts. - Negative for malignancy. (MLK/db; 08/30/2021) LBQ 08/30/2021 1705 Local . 02 Electronically signed: . Nimesh Cintron MD, Pathologist NPI- [id number] . 01 Gross description: . Fixative: Formalin Labeled: Uterus, fallopian tubes, ovaries Specimen received: Uterus with attached cervix, and attached bilateral adnexa Uterus weight: 63 g Uterus: 7.5 cm fundus to cervix, 4.6 cm cornu to cornu, and 3.6 cm anterior to posterior Serosa: [place]-meza, smooth Ectocervix: Pale meza, smooth Cervical os: Patent, measuring 0.6 cm Endocervical canal: 2.4 cm Endometrial cavity: 3.6 x 2.7 cm Endometrium: Pale meza, glistening to slightly granular Endometrial thickness: 0.1 cm Myometrium: Meza-pink, trabeculated Myometrial thickness: Up to 2.0 cm Lesions/abnormalities: None identified Left fallopian tube: 2 g, previously ligated (with a white plastic ring present), fimbriated, 4.8 cm in length by 0.5 cm in diameter, with an attached paratubal cyst measuring 0.8 cm filled with clear fluid Left fallopian tube cut surface: Pinpoint to patent lumen Left ovary: 4 g, 2.8 x 2.2 x 1.7 cm Left ovary appearance: Several cystic structures ranging in size from 0.3-0.6 cm, as well as pale meza, normal ovarian stroma Right fallopian tube: 2 g, previously ligated (with a white plastic ring present), fimbriated, 3.8 cm in length by 0.5 cm in diameter with an attached paratubal cyst measuring 0.5 cm filled with clear fluid Right fallopian tube cut surface: Pinpoint to patent lumen Right ovary: 4 g, 2.9 x 1.7 x 1.2 cm, Right ovary appearance: Multiple cystic structures ranging in size from 0.3-0.5 cm, as well as pale meza, normal ovarian stroma . Help Desk Intern sections are submitted as follows: . A1 12:00 cervix A2 6:00 cervix A3 anterior endomyometrium A4 posterior endomyometrium A5 left fallopian tube A6 left ovary A7 right fallopian tube A8 right ovary (CAA; 08/29/2021) QAC/QA 08/29/2021 1232 Local . 02 Pathologist provided ICD-10: N80.0, N94.89, N83.8, N83.01, N83.02, N88.8 . 02 CPT . 015868 Specimen Comment: A courtesy copy of this report has been sent to [phone] Specimen Comment: Report sent to Performed at: 01 [facility] [address] [place] [address] [id number] MD Jan Guerrero MD Phone: [phone] Performed at: [address] [id number] MD Nadeem Oh MD Phone: [phone]
== END 2021-08-28 16:45 | disposition home or self-care (01) ==
LOC: SURG 06:10 → 3 SO LND 09:22
PROVIDERS: ADMIT Obstetrics & Gynecology; ATTEND Obstetrics & Gynecology
DX: N92.0 Excessive and frequent menstruation with regular cycle (principal); Z20.822 Contact with and (suspected) exposure to COVID-19; N94.6 Dysmenorrhea, unspecified; K66.0 Peritoneal adhesions (postprocedural) (postinfection); N85.4 Malposition of uterus; Z98.51 Tubal ligation status
CPT/HCPCS: 36415; 58552; 81025; 86850; 86900; 86901; 96374; A4314; A4930; A6219; G0378; G0379; J0690; J1100; J1170; J1200; J1885; J2250; J2270; J2405; J2704; J2710; J3010; J3480; J3490; A4657